=== PATIENT | female | born 1995 | race Caucasian/White ===

== ENCOUNTER 2022-09-01 09:20 | Emergency (ER) | payer MEDICAID ==
[~2022-09-01] VITALS: Ht 165.1 cm; Wt 173.7 kg
[2022-09-01 09:34] VITALS: BP_SYST 171; PULSE 100; RESP 18; TEMP 97.5; O2SAT 98
[2022-09-01 10:04] LABS: BASOPHILS # (AUTO) 0.1 K/uL (0.0-0.2); EOSINOPHILS # (AUTO) 0.3 K/uL (0.0-0.4); EOSINOPHILS % (AUTO) 2.1 % (0.0-4.0); HEMATOCRIT 44.5 % (36-48); HEMOGLOBIN 14.2 g/dL (12.0-16.0); LYMPHOCYTES # (AUTO) 2.7 K/uL (1.0-5.5); LYMPHOCYTES % (AUTO) 19.5 % (20.5-51.5); MEAN CORPUSCULAR HEMOGLOBIN 28 pg (27-31); MEAN CORPUSCULAR HGB CONC 32 % (32-36); MEAN CORPUSCULAR VOLUME 89 fL (79.0-98.0); MONOCYTES # (AUTO) 0.7 K/uL (0.0-1.0); MONOCYTES % (AUTO) 5.3 % (1.7-9.3); NEUTROPHILS # (AUTO) 9.9 K/uL (1.8-7.7); NEUTROPHILS % (AUTO) 72.1 % (40.0-70.0); PLATELET COUNT (AUTO) 319 K/uL (130-430); RED BLOOD CELL COUNT(AUTO) 5.03 MIL/uL (4.2-6.2); RED CELL DISTRIBUTION WIDTH 14.5 % (9.0-15.0); WHITE BLOOD COUNT (AUTO) 13.8 K/uL (4.8-10.8)
[2022-09-01 10:25] LABS: CALCIUM 8.5 mg/dL (8.4-11.0); CREATININE 0.57 mg/dL (0.55-1.30)
[2022-09-01] MEDS ORDERED: DIPHTH,PERTUSS(ACELL),TET VAC 0.5 ML VIAL (Tdap) I.M. ONE (10:30)
[2022-09-01] MEDS ORDERED: LIDOCAINE 1% 10 MG/ML, 20 ML MDV INJ ONE (10:30)
[2022-09-01 10:40] LABS: ALBUMIN 3.5 g/dL (3.4-4.8); TOTAL BILIRUBIN 0.5 mg/dL (0.0-1.0)
[2022-09-01] MEDS ORDERED: CLIN-142 PO (10:53)
[2022-09-01] MEDS ORDERED: BACITRACIN 1 GM OINT TP ONE (11:10)
[2022-09-01 11:39] VITALS: BP_SYST 135; PULSE 74; RESP 18; TEMP 97.3; O2SAT 98
== END 2022-09-01 11:40 | disposition home or self-care (01) ==
LOC: SED 09:20
DX: L02.11 Cutaneous abscess of neck (principal); R22.1 Localized swelling, mass and lump, neck; Z79.899 Other long term (current) drug therapy
CPT/HCPCS: 36415; 80053; 83605; 84703; 85025; 90715; 99283

== ENCOUNTER 2022-09-02 23:51 | Emergency (ER) | payer MEDICAID ==
[~2022-09-02] VITALS: Ht 177.8 cm; Wt 173.7 kg
[~2022-09-02 23:51] MED LIST: CLIN-142 PO
[2022-09-03 00:06] VITALS: BP_SYST 155; PULSE 125; RESP 26; TEMP 99.3; O2SAT 94
[2022-09-03 01:02] LABS: BASOPHILS % (AUTO) 0.3 % (0.0-2.0); EOSINOPHILS # (AUTO) 0.1 K/uL (0.0-0.4); EOSINOPHILS % (AUTO) 0.8 % (0.0-4.0); HEMATOCRIT 41.4 % (36-48); HEMOGLOBIN 13.4 g/dL (12.0-16.0); LYMPHOCYTES # (AUTO) 0.8 K/uL (1.0-5.5); LYMPHOCYTES % (AUTO) 11.8 % (20.5-51.5); MEAN CORPUSCULAR HEMOGLOBIN 29 pg (27-31); MEAN CORPUSCULAR HGB CONC 32 % (32-36); MEAN CORPUSCULAR VOLUME 88 fL (79.0-98.0); MONOCYTES # (AUTO) 0.4 K/uL (0.0-1.0); MONOCYTES % (AUTO) 6.6 % (1.7-9.3); NEUTROPHILS # (AUTO) 5.4 K/uL (1.8-7.7); NEUTROPHILS % (AUTO) 80.5 % (40.0-70.0); PLATELET COUNT (AUTO) 223 K/uL (130-430); RED BLOOD CELL COUNT(AUTO) 4.69 MIL/uL (4.2-6.2); RED CELL DISTRIBUTION WIDTH 14.1 % (9.0-15.0); WHITE BLOOD COUNT (AUTO) 6.8 K/uL (4.8-10.8)
[2022-09-03 01:18] LABS: BILIRUBIN,URINE NEGATIVE (NEGATIVE); BLOOD, URINE 1+ (NEGATIVE); COLOR,URINE YELLOW (YELLOW); GLUCOSE,URINE 3+ (NEGATIVE); KETONES,URINE TRACE (NEGATIVE); NITRITE, URINE NEGATIVE (NEGATIVE); PH,URINE 6.5 (5.0-8.0); PROTEIN URINE TRACE (NEGATIVE); UROBILINOGEN,URINE 0.2 (0.2-1.0)
[2022-09-03 01:19] LABS: CALCIUM 8.7 mg/dL (8.4-11.0); CREATININE 0.72 mg/dL (0.55-1.30)
[2022-09-03 01:23] LABS: ALBUMIN 3.1 g/dL (3.4-4.8); TOTAL BILIRUBIN 0.5 mg/dL (0.0-1.0)
[2022-09-03 01:27] LABS: CLARITY/URINE SLIGHTLY CLOUDY (CLEAR); LEUKOCYTE ESTERASE ,URINE TRACE (NEGATIVE)
[2022-09-03 01:29] LABS: BACTERIA,URINE FEW /HPF (None Seen); RBC,URINE 20-50 /HPF (0-3)
[2022-09-03 01:33] LABS: YEAST,URINE Few /HPF (None Seen)
[2022-09-03] MEDS ORDERED: CEPH-548 PO (01:45)
[2022-09-03] MEDS ORDERED: IBUPROFEN 600 MG TABLET PO ONE (01:45)
[2022-09-03] MEDS ORDERED: IBUP-1969 PO (01:45)
[2022-09-03 01:55] VITALS: BP_SYST 134; PULSE 118; RESP 18; TEMP 102.3; O2SAT 97
== END 2022-09-03 01:59 | disposition home or self-care (01) ==
LOC: SED 23:51
DX: N39.0 Urinary tract infection, site not specified (principal); R74.01 Elevation of levels of liver transaminase levels; R50.9 Fever, unspecified; R51.9 Headache, unspecified; R11.0 Nausea; E11.9 Type 2 diabetes mellitus without complications; I10 Essential (primary) hypertension; Z79.899 Other long term (current) drug therapy; Z20.822 Contact with and (suspected) exposure to COVID-19
CPT/HCPCS: 36415; 80053; 81000; 81025; 83605; 85025; 87040; 87086; 99283

== ENCOUNTER 2023-02-11 11:13 | Emergency (ER) | payer MEDICAID ==
[~2023-02-11] VITALS: Ht 165.1 cm; Wt 165.6 kg
[~2023-02-11 11:13] MED LIST changes: +CEPH-548 PO; +IBUP-1969 PO
[2023-02-11 11:31] VITALS: BP_SYST 143; PULSE 88; TEMP 96.5; O2SAT 97
[2023-02-11] MEDS ORDERED: CLIN-142 PO (12:06)
[2023-02-11 12:20] VITALS: BP_SYST 143; PULSE 88; TEMP 96.5; O2SAT 97
[2023-02-12] MEDS ORDERED: SULF1TAB48 PO (22:53)
== END 2023-02-11 12:20 | disposition home or self-care (01) ==
LOC: SED 11:13
DX: L72.3 Sebaceous cyst (principal); R22.1 Localized swelling, mass and lump, neck; Z79.899 Other long term (current) drug therapy
CPT/HCPCS: 99283

== ENCOUNTER 2023-02-12 19:30 | Emergency (ER) | payer MEDICAID ==
[~2023-02-12] VITALS: Ht 165.1 cm; Wt 163.3 kg
[2023-02-12 19:40] VITALS: BP_SYST 171; PULSE 93; RESP 16; TEMP 97.9; O2SAT 97
[2023-02-12] MEDS ORDERED: SULF1TAB48 PO (22:53)
[2023-02-12 23:12] VITALS: BP_SYST 171; PULSE 93; RESP 16; TEMP 97.9; O2SAT 97
== END 2023-02-12 23:12 | disposition home or self-care (01) ==
LOC: SED 19:30
DX: L72.0 Epidermal cyst (principal); R22.1 Localized swelling, mass and lump, neck; Z79.899 Other long term (current) drug therapy
CPT/HCPCS: 99283

== ENCOUNTER 2023-09-11 10:33 | Emergency (ER) | payer MEDICAID ==
[~2023-09-11] VITALS: Ht 165.1 cm; Wt 161.0 kg
[~2023-09-11 10:33] MED LIST changes: +ACET-2634 PO; +SULF1TAB48 PO
[2023-09-11 10:37] VITALS: BP_SYST 140; PULSE 99; RESP 22; TEMP 98.3; O2SAT 95
[2023-09-11] MEDS ORDERED: HYDR-3927 PO (12:32)
[2023-09-11] MEDS ORDERED: CEPH-548 PO (12:32)
[2023-09-11] MEDS: MORPHINE 4 MG INJ. 4 MG/ML VIAL IM ONE (12:33)
[2023-09-11] MEDS: LIDOCAINE 1% 10 MG/ML, 20 ML MDV INJ ONE (12:33)
[2023-09-11 12:46] VITALS: BP_SYST 138; PULSE 89; RESP 18; TEMP 98.3; O2SAT 98
== END 2023-09-11 12:45 | disposition home or self-care (01) ==
LOC: SED 10:33
DX: L02.212 Cutaneous abscess of back [any part, except buttock and flank] (principal)
CPT/HCPCS: 99283; 10060; 96372; J2270

== ENCOUNTER 2023-09-13 07:18 | Emergency (ER) | payer MEDICAID ==
[~2023-09-13] VITALS: Ht 152.4 cm; Wt 161.0 kg
[~2023-09-13 07:18] MED LIST changes: +HYDR-3927 PO
[2023-09-13 07:28] VITALS: BP_SYST 136; PULSE 71; RESP 16; TEMP 97; O2SAT 97
[2023-09-13] MEDS ORDERED: DOXY100C5 PO (07:38)
[2023-09-13 07:47] VITALS: BP_SYST 136; PULSE 71; RESP 16; TEMP 97; O2SAT 97
== END 2023-09-13 07:46 | disposition home or self-care (01) ==
LOC: SED 07:18
DX: L02.212 Cutaneous abscess of back [any part, except buttock and flank] (principal); Z79.899 Other long term (current) drug therapy; Z79.2 Long term (current) use of antibiotics
CPT/HCPCS: 99283